=== PATIENT | female | born 1950 | race Caucasian/White ===

== ENCOUNTER 2020-02-15 11:31 | Observation (INO) | payer BC, MEDICARE ==
[~2020-02-15] VITALS: Ht 170.2 cm; Wt 76.7 kg
[~2020-02-15 11:31] MED LIST: Z.0.PRINIVIL10 MG PO; Z.0.ZOCOR20 MG PO
[2020-02-15 11:55] LABS: BASOPHILS % 0.9 % (0.0-1.0); EOSINOPHILS % 0.9 % (0.0-6.0); HEMATOCRIT 40.4 % (34.2-44.1); HEMOGLOBIN 13.4 g/dL (12.0-16.0); LYMPHOCYTES # (AUTO) 1.7 (1.0-3.2); LYMPHOCYTES % 37.9 % (18.0-39.1); MEAN CORPUSCULAR HEMOGLOBIN 29.3 pg (28-32); MEAN CORPUSCULAR HGB CONC 33.2 g/dL (31-35); MEAN CORPUSCULAR VOLUME 88.4 fL (81-99); MONOCYTES # (AUTO) 0.2 (0.2-0.8); MONOCYTES % 5.3 % (4.4-11.3); NEUTROPHILS # (AUTO) 2.5 (2.1-6.9); NEUTROPHILS % 54.8 % (38.7-80.0); PLATELET COUNT 236 x10e3/uL (140-360); RED BLOOD COUNT 4.57 x10e6/uL (3.6-5.1); RED CELL DISTRIBUTION WIDTH 13.4 % (11.7-14.4)
[2020-02-15 12:13] LABS: ALANINE AMINOTRANSFERASE 21 IU/L (0-55); ALBUMIN 4.3 g/dL (3.5-5.0); ALBUMIN/GLOBULIN RATIO 1.5 (0.8-2.0); ALKALINE PHOSPHATASE 73 IU/L (40-150); ANION GAP 15.2 mmol/L (8-16); BLOOD UREA NITROGEN 8 mg/dL (7-26); BUN/CREATININE RATIO 11 (6-25); CALCIUM 9.9 mg/dL (8.4-10.2); CARBON DIOXIDE 27 mmol/L (22-29); CHLORIDE 105 mmol/L (98-107); CREATINE KINASE 72 IU/L (29-168); CREATININE, SERUM 0.71 mg/dL (0.57-1.11); EST GLOMERULAR FILTRATION RATE > 60 ML/MIN (60-); GLUCOSE 100 mg/dL (74-118); POTASSIUM 4.2 mmol/L (3.5-5.1); SODIUM 143 mmol/L (136-145)
--- NOTE | 2020-02-15 12:24 | Diagnostic Imaging Report ---
X-ray chest frontal view History: Left-sided chest pain Comparison: 06/29/2010 Findings: Central airways: Unremarkable Cardiac silhouette: Unremarkable Mediastinal silhouettes: Unremarkable Pleura: No pleural effusion, pneumothorax or thickening Diaphragms: Unremarkable Lungs: No focal lung disease Skeletal structures: Chronic changes of degeneration Extrathoracic soft tissues: Unremarkable Impression: No acute cardiopulmonary disease Signed by: Markie Ga MD on 02/15/2020 12:20 PM
--- NOTE | 2020-02-15 12:46 | Emergency Department Note ---
History of Present Illnes History of Present Illness Chief Complaint: Chest Pain History of Present Illness This is a 69 year old female arrived to the ED with complaints of regimen chest pain that feels like pressure the past several days.. Chief Complaint Comment PATIENT IN FROM HOME WITH COMPLAINTS OF LEFT SIDED CHEST PAIN OFF AND ON SINCE YESTERDAY; STATES NOW SHE FEELS CHEST PRESSURE RATED 3/10. PATIENT ALERT AND ORIENTED, RESP EVEN AND NONLABORED, APPEARS ANXIOUS, AMBULATORY WITHOUT ASSISTANCE, O2 SATS 99% ON ROOM AIR Historian: Patient, Family Member Arrival Mode: Car Onset (how long ago): day(s) Radiation: Reports non-radiation Severity: mild Onset quality: sudden Duration (how long): day(s) Timing of current episode: constant Progression: resolved Chronicity: new Past Medical/Family History Physician Review I have reviewed the patient's past medical and family history. Any updates have been documented here. Past Medical History Recent Fever: No Clinical Suspicion of Infectio: No New/Unexplained Change in Ment: No Past Medical History: Hypertension, Hyperlipedemia Other Medical History: HYPERCHOLESTEREMIA, Past Surgical History: Appendectomy, Hysterectomy Other Surgery: OVARIAN CYST Review of Systems Review of Systems Constitutional: Reports no symptoms EENTM: Reports no symptoms Cardiovascular: Reports as per HPI, Reports chest pain Respiratory: Reports no symptoms Gastrointestinal: Reports no symptoms Genitourinary: Reports no symptoms Musculoskeletal: Reports no symptoms Integumentary: Reports no symptoms Neurological: Reports no symptoms Psychological: Reports no symptoms Endocrine: Reports no symptoms Hematological/Lymphatic: Reports no symptoms Physical Exam Related Data Allergies: Coded Allergies: No Known Allergies (Unverified , 02/20/11) Triage Vital Signs Vital Signs Date Time Temp Pulse Resp B/P (MAP) Pulse Ox O2 Delivery O2 Flow Rate FiO2 02/15/20 11:37 98.2 73 18 169/81 99 Room Air Vital signs reviewed: Yes Physical Exam CONSTITUTIONAL Constitutional: Present well-developed, Present well-nourished HENT HENT: Present normocephalic, Present atraumatic, Present oropharynx clear/moist, Present nose normal HENT L/R: Present left ext ear normal, Present right ext ear normal EYES Eyes: Reports PERRL, Reports conjunctivae normal NECK Neck: Present ROM normal PULMONARY Pulmonary: Present effort normal, Present breath sounds normal CARDIOVASCULAR Cardiovascular: Present regular rhythm, Present heart sounds normal, Present capillary refill normal, Present normal rate GASTROINTESTINAL Abdominal: Present soft, Present nontender, Present bowel sounds normal GENITOURINARY Genitourinary: Present exam deferred SKIN Skin: Present warm, Present dry MUSCULOSKELETAL Musculoskeletal: Present ROM normal NEUROLOGICAL Neurological: Present alert, Present oriented x 3, Present no gross motor or sensory deficits PSYCHOLOGICAL Psychological: Present mood/affect normal, Present judgement normal Results Laboratory Result Diagram: 02/15/20 1150 02/15/20 1150 Laboratory Laboratory Tests Test 02/15/20 11:50 White Blood Count 4.56 x10e3/uL (4.8-10.8) Red Blood Count 4.57 x10e6/uL (3.6-5.1) Hemoglobin 13.4 g/dL (12.0-16.0) Hematocrit 40.4 % (34.2-44.1) Mean Corpuscular Volume 88.4 fL (81-99) Mean Corpuscular Hemoglobin 29.3 pg (28-32) Mean Corpuscular Hemoglobin Concent 33.2 g/dL (31-35) Red Cell Distribution Width 13.4 % (11.7-14.4) Platelet Count 236 x10e3/uL (140-360) Neutrophils (%) (Auto) 54.8 % (38.7-80.0) Lymphocytes (%) (Auto) 37.9 % (18.0-39.1) Monocytes (%) (Auto) 5.3 % (4.4-11.3) Eosinophils (%) (Auto) 0.9 % (0.0-6.0) Basophils (%) (Auto) 0.9 % (0.0-1.0) Neutrophils # (Auto) 2.5 (2.1-6.9) Lymphocytes # (Auto) 1.7 (1.0-3.2) Monocytes # (Auto) 0.2 (0.2-0.8) Eosinophils # (Auto) 0.0 (0.0-0.4) Basophils # (Auto) 0.0 (0.0-0.1) Absolute Immature Granulocyte (auto 0.01 x10e3/uL (0-0.1) Sodium Level 143 mmol/L (136-145) Potassium Level 4.2 mmol/L (3.5-5.1) Chloride Level 105 mmol/L (98-107) Carbon Dioxide Level 27 mmol/L (22-29) Anion Gap 15.2 mmol/L (8-16) Blood Urea Nitrogen 8 mg/dL (7-26) Creatinine 0.71 mg/dL (0.57-1.11) Estimat Glomerular Filtration Rate > 60 ML/MIN (60-) BUN/Creatinine Ratio 11 (6-25) Glucose Level 100 mg/dL (74-118) Calcium Level 9.9 mg/dL (8.4-10.2) Total Bilirubin 0.5 mg/dL (0.2-1.2) Aspartate Amino Transf (AST/SGOT) 25 IU/L (5-34) Alanine Aminotransferase (ALT/SGPT) 21 IU/L (0-55) Alkaline Phosphatase 73 IU/L (40-150) Creatine Kinase 72 IU/L (29-168) Creatine Kinase MB 1.40 ng/mL (0-5.0) Troponin I 0.022 ng/mL (0-0.300) Total Protein 7.2 g/dL (6.5-8.1) Albumin 4.3 g/dL (3.5-5.0) Globulin 2.9 g/dL (2.3-3.5) Albumin/Globulin Ratio 1.5 (0.8-2.0) Lab results reviewed: Yes Imaging Imaging results reviewed: Yes Procedures 12 Lead ECG Interpretation ECG Interpretation : ECG: ECG 1 Prior ECG tracings: reviewed Rhythm: sinus rhythm QRS axis: normal ST segments normal: Yes T waves normal: Yes Clinical Impression: normal ECG Clinical Decision Tools HEART Score Another reason for symptoms: HEART score not applicable HEART Score: HEART Score Response (Comments) Value History Moderately suspicious 1 EKG Non specific repolarization 1 Age > or equal to 65 2 Risk factors 1 or 2 risk factors 1 Troponin 1-3x normal limit Total 5 Assessment & Plan Medical Decision Making MDM The patient's risk factors for ACS were reviewed as well as the EKG. The CXR assists in r/o Pneumonia, Pneumothorax, Esophageal Tears. The patient does not appear to have a Pulmonary Embolism based on the Wells Score and PERC rule and there is no apparent DVT. There are no signs of Pericarditis, Endocarditis, or Myocarditis based on risk factor analysis. There is no fever. There does not appear to be an Aortic Dissection either based on history, physical exam, and signs. with a high heart score her hospital admission for cardiac optimization Assessment & Plan Final Impression: (1) Chest pain Depart Disposition: HOME, SELF-CARE Last Vital Signs Date Time Temp Pulse Resp B/P (MAP) Pulse Ox O2 Delivery O2 Flow Rate FiO2 02/15/20 11:37 98.2 73 18 169/81 99 Room Air Home Meds Reported Medications Simvastatin (Zocor) 20 Mg Tablet, QD 02/20/11 Lisinopril (Prinivil) 10 Mg Tablet, QD 02/20/11 REJI CORTEZ, Feb 15, 2020 12:46
[2020-02-15] MEDS ORDERED: ASPIRIN 81 MG CHEW TAB PO ONE (14:30)
--- NOTE | 2020-02-15 15:26 | NUR ---
Patient is requesting a new biofuels product development manager for her care. Requesting to see Dr. Dickey- consult placed, Dr. Dickey informed.
--- NOTE | 2020-02-15 16:25 | NUR ---
Received patient from ER via wheelchair. AAOX4 to time, person, place, situation. Respirations even and unlabored. Denies chest pain. Tele #[phone]. Oriented patient to room. Instructed to use call light for assistance. Voiced understanding.
[2020-02-15] MEDS ORDERED: VITAMIN D3 COM1 EACH PO (16:32)
[2020-02-15] MEDS ORDERED: ASPIRIN81 MG PO (16:32)
[2020-02-15] MEDS ORDERED: vitamin d3 PO (16:33)
[2020-02-15 16:53] VITALS: BP 141/56
[2020-02-15 17:00] VITALS: BP 141/56
--- NOTE | 2020-02-15 19:12 | Consultation ---
DATE OF CONSULTATION: Cardiology Consultation REASON FOR CONSULTATION: Chest pain. HISTORY OF PRESENT ILLNESS: This is a 69-year-old woman with a history of hypertension, hyperlipidemia, and self-reported stress and anxiety, who presented to the emergency department with left flank pain. The patient states that her discomfort started below her left breast and radiated around to the upper back. Her symptoms occurred at rest, slightly worsened with supine positioning, not exacerbated by exertion. Her symptoms with [id number] intensity, described as a sharp pain, symptoms were mild, no other exacerbating or relieving factors. She states that she has had a heart catheterization in the past, which showed no blockages. She is otherwise asymptomatic from a cardiovascular standpoint. REVIEW OF SYSTEMS: A 12-point review of system was conducted, is negative except stated above in the HPI. PAST MEDICAL HISTORY: As stated above in the HPI. PAST SURGICAL HISTORY: None recent. PAST FAMILY HISTORY: Noncontributory to current illness. SOCIAL HISTORY: No illicit drug, alcohol, or tobacco use. ALLERGIES: NO KNOWN DRUG ALLERGIES. MEDICATIONS: See medication reconciliation form. PHYSICAL EXAMINATION: VITAL SIGNS: Temperature is 98.3, heart rate 62, respirations 18, blood pressure is 141/56, oxygen saturation is 100% on room air. GENERAL: A well-appearing, well built, no apparent distress. Alert and oriented x3. HEAD: Normocephalic and atraumatic. Eyes, the extraocular muscles are intact. Conjunctivae are clear. NECK: No JVD. No bruits. CARDIOVASCULAR: Regular rate and rhythm. LUNGS: Clear to auscultation. ABDOMEN: Soft, nontender, nondistended. EXTREMITIES: No clubbing, cyanosis, or edema. VASCULAR: 2+ pulses. SKIN: Warm, dry, intact. NEUROLOGIC: No focal deficits noted. Cranial nerves grossly intact. PSYCHIATRIC: Normal mood and affect. LABORATORY DATA: Reviewed. Troponin negative x1. A 12-lead electrocardiogram showed normal sinus rhythm. IMPRESSION: 1. Precordial pain. 2. Hypertension. 3. Hyperlipidemia. RECOMMENDATIONS: Obtain 1 additional troponin value. If this is within normal limits, the patient may be discharged from a cardiovascular standpoint with followup on February 17 for stress test and echocardiography. DO BREANA Mcfadden/MODL /[id number]
--- NOTE | 2020-02-15 19:19 | NUR ---
Troponin level 0.019. Cleared to discharge from cardiac standpoint. Patient states "I want to go home." Denies chest pain.Call light within reach. at bedside.Paged to notify of situation. Report given to oncoming nurse of patient's status.
[2020-02-15 20:00] VITALS: BP 122/63
[2020-02-15] MEDS ORDERED: SIMVASTATIN 20 MG TAB PO SCH (21:00)
[2020-02-16] MEDS ORDERED: LISINOPRIL 10 MG TAB PO SCH (09:00)
[2020-02-16] MEDS ORDERED: ASPIRIN 81 MG CHEW TAB PO SCH (09:00)
== END 2020-02-15 20:26 | disposition home or self-care (01) ==
LOC: ER 11:41 → ERHOLD 14:16 → MED/SURG 16:24
DX: R07.9 Chest pain, unspecified (principal); I10 Essential (primary) hypertension; E78.5 Hyperlipidemia, unspecified; E78.00 Pure hypercholesterolemia, unspecified; R07.89 Other chest pain; Z11.59 Encounter for screening for other viral diseases
CPT/HCPCS: 36415; 71045; 80053; 82550; 82553; 84484; 85025; 93005; 99284; G0378; U0002

== ENCOUNTER 2020-02-26 12:29 | Emergency (ER) | payer BC, MEDICARE ==
[~2020-02-26] VITALS: Ht 167.6 cm; Wt 77.2 kg
[~2020-02-26 12:29] MED LIST changes: +ASPIRIN81 MG PO; +VITAMIN D3 COM1 EACH PO; +vitamin d3 PO
[2020-02-26] MEDS ORDERED: CEPHALEXIN 500 MG CAP PO STA (12:39)
[2020-02-26] MEDS ORDERED: LIDOCAINE HCL 2% LOCAL 20 ML VIAL INJ STA (12:39)
[2020-02-26] MEDS ORDERED: ACETAMINOPHEN 325 MG TAB PO ONE (12:45)
[2020-02-26] MEDS ORDERED: TRIMETHOPRIM/SULFAMETHOXAZOLE 160-800 MG TAB ONE (12:53)
[2020-02-26] MEDS ORDERED: BACITRACIN ZINC 0.9GM TP ONE (12:53)
[2020-02-26] MEDS ORDERED: TRIMETHOPRIM/SULFAMETHOXAZOLE 160-800 MG TAB PO ONE (13:00)
--- NOTE | 2020-02-26 13:29 | Emergency Department Note ---
History of Present Illnes History of Present Illness Chief Complaint: Laceration History of Present Illness This is a 69 year old female accidentally fell at ground level, lacera tion right eye brow about 2.5 cm, abrasion right knee, painful, size of a dollar coin. Pt came to Dr Renard Topete PCP and was told to come to ER for evaluation. Arrival Mode: Car International Manager Required: No Onset (how long ago): hour(s) Radiation: Reports non-radiation Severity: moderate Onset quality: sudden Duration (how long): hour(s) Progression: unchanged Chronicity: new Relieving factors: none Exacerbating factors: none Treatments prior to arrival: NSAID Past Medical/Family History Physician Review I have reviewed the patient's past medical and family history. Any updates have been documented here. 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, ) Review of Systems Review of Systems Constitutional: Reports no symptoms EENTM: Reports no symptoms Cardiovascular: Reports no symptoms Respiratory: Reports no symptoms Gastrointestinal: Reports no symptoms Genitourinary: Reports no symptoms Musculoskeletal: Reports as per HPI Integumentary: Reports rash Neurological: Reports no symptoms Psychological: Reports no symptoms Endocrine: Reports no symptoms Hematological/Lymphatic: Reports no symptoms Physical Exam Related Data Allergies: Coded Allergies: No Known Allergies (Unverified , 02/20/11) Vital signs reviewed: Yes Physical Exam CONSTITUTIONAL Constitutional: Present well-developed, Present well-nourished HENT HENT: Present normocephalic, Present atraumatic, Present oropharynx clear/moist, Present nose normal HENT L/R: Present left ext ear normal, Present right ext ear normal EYES Eyes: Reports PERRL, Reports conjunctivae normal NECK Neck: Present ROM normal PULMONARY Pulmonary: Present effort normal, Present breath sounds normal CARDIOVASCULAR Cardiovascular: Present regular rhythm, Present heart sounds normal, Present capillary refill normal, Present normal rate GASTROINTESTINAL Abdominal: Present soft, Present nontender, Present bowel sounds normal GENITOURINARY Genitourinary: Present exam deferred SKIN Skin: Present warm, Present dry, Present rash (abrasion right knee), Present bruising (laceraion right eyebrow with ecchymosis) MUSCULOSKELETAL Musculoskeletal: Present ROM normal NEUROLOGICAL Neurological: Present alert, Present oriented x 3, Present no gross motor or sensory deficits PSYCHOLOGICAL Psychological: Present mood/affect normal, Present judgement normal Procedures Laceration Laceration: Laceration 1 Site: face Side: right Size (cm): 2.5 Description: linear Depth: simple, single layer Local anesthesia: lidocaine 1%, lidocaine 2%, with epi Amount of anesthesia (mL): 3 Pre-repair: wound exposed Skin layer closed with: nylon Size (cm): 5-0 Number of sutures: 5 Technique: simple, interrupted Additional comments bacitracin applied, covered with sterile strips Assessment & Plan Medical Decision Making MDM laceration abrasion Reassessment Reassessment time: 13:25 Reassessment walks out of ER in [facility] Assessment & Plan Final Impression: (1) Acute pain due to trauma (2) Laceration of right eyebrow (3) Abrasion of right knee Depart Disposition: HOME, SELF-[facility] Meds Reported Medications [vitamin d3] No Conflict Check, 2000 UNITS PO DAILY 02/15/20 Aspirin (ASPIRIN) 81 Mg Tab.chew, 81 MG PO DAILY 02/15/20 Simvastatin (Zocor) 20 Mg Tablet, 20 MG PO QD 02/20/11 Lisinopril (Prinivil) 10 Mg Tablet, 10 MG PO QD 02/20/11 Physician Attestation Provider Attestation f/u with PCP 5-7 days for sutures removal KOSTAS MCRAE MD Feb 26, 2020 12:43
--- OUTSIDE RECORDS SUMMARY | 2020-02-28 19:03 | XMS REPORT | Continuity of Care Document ---
Author Author 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 Allergies, Adverse Reactions, Alerts This patient has no known allergies or adverse reactions. Medications This patient has no known medications. Procedures This patient has no known procedures. Results Test Description Test Time Test Comments Results Result Comments Source CHEST SINGLE (PORTABLE) 2020-02-15 12:18:00 [facility] 1950 Sex: F [facility] [address] [place], [place] [address] Patient Name: LINDA MURO MR #: [id number] : 1950 Age/Sex: 69/F Req #: [id number] [facility] Physician: Ordered by: REJI CORTEZ DO Report #: [id number] Location: ER Room/Bed: Procedure: [id number] DX/CHEST SINGLE (PORTABLE) Exam Date: 02/15/20 Exam Time: 1154 REPORT STATUS: Signed X-ray chest frontal view History: Left-sided chest pain Comparison: 06/29/2010 Findings: Central airways: Unremarkable Cardiac silhouette: Unremarkable Mediastinal silhouettes: Unremarkable Pleura: No pleural effusion, pneumothorax or thickening Diaphragms: Unremarkable Lungs: No focal lung disease Skeletal structures: Chronic changes of degeneration Extrathoracic soft tissues: Unremarkable Impression: No acute cardiopulmonary disease Signed by: Mateo Montes MD on 02/15/2020 12:20 PM Dictated By: MATEO MONTES MD 1220 Transcribed By: NGUYEN on 02/15/20 1220 COPY TO: REJI CORTEZ DO SCR MAMM BILATERAL ELIDA CAD DIGITAL 2019-04-20 10:55:22 - SCR MAMM BILATERAL ELIDA CAD DIGITALBILATERAL DIGITAL SCREENING MAMMOGRAM 3D/2D WITH CAD: 03/26/2019CLINICAL: Asymptomatic. Digital breast tomosynthesis was performed in addition to routine CC and MLO views. Current mammographic images were evaluated by either a 1calendar M-Vu or a [employer] ImageChecker CAD (computer aided detection system). Comparison is made to exams dated 06/04/2011 mammogram - [facility]- and 08/24/2007 mammogram - [facility]. There are scattered fibroglandular tissues in both breasts. No new suspicious mass, architectural distortion, malignant type calcification, or lymph node abnormality detected. Breast architecture is stable compared to prior exams.IMPRESSION: NEGATIVEThere is no mammographic evidence of malignancy. Resume annual screening mammography in one year. Lupe Freeman M.D. ar/:04/20/2019 10:55:22 Vertical Lathe Operator: Yvette Thomson , [facility]-FWletter sent: BIRADS 1-2 Normal Mammogram BI-RADS: 1 Negative
== END 2020-02-26 13:26 | disposition home or self-care (01) ==
LOC: FSED 13:02
DX: S01.111A Laceration without foreign body of right eyelid and periocular area, initial encounter (principal); S80.211A Abrasion, right knee, initial encounter; W01.0XXA Fall on same level from slipping, tripping and stumbling without subsequent striking against object, initial encounter; Y93.01 Activity, walking, marching and hiking; Y92.008 Other place in unspecified non-institutional (private) residence as the place of occurrence of the external cause; I10 Essential (primary) hypertension; E78.5 Hyperlipidemia, unspecified
CPT/HCPCS: 12011; 99284; J2001

== ENCOUNTER → 2021-02-10 | Outpatient (CLI) | payer MEDICARE ==
[~2021-02-10] MED LIST changes: +IOPAMIDOL 370 MG/ML 200 ML INFUS..BTL INJ ONE; +METOPROLOL TARTRATE INJ 1 MG/ML VIAL ONE; +NITROGLYCERIN 0.4 MG SUBL ONE; +SODIUM CHLORIDE 0.9% 100 ML ONE
[2021-02-10 09:28] LABS: CREATININE, SERUM 0.64 mg/dL (0.57-1.11)
== END ==
LOC: CT 08:33
PROVIDERS: ATTEND Internal Medicine Cardiovascular Disease
DX: R07.9 Chest pain, unspecified (principal)
CPT/HCPCS: 36415; 75574; 82565; 84520; J7050; Q9967

== ENCOUNTER → 2021-10-09 | Outpatient (CLI) | payer MEDICARE ==
[~2021-10-09] MED LIST changes: -IOPAMIDOL 370 MG/ML 200 ML INFUS..BTL INJ ONE; -METOPROLOL TARTRATE INJ 1 MG/ML VIAL ONE; -NITROGLYCERIN 0.4 MG SUBL ONE; -SODIUM CHLORIDE 0.9% 100 ML ONE
== END ==
LOC: US 10:50
PROVIDERS: ATTEND Surgery
DX: R10.11 Right upper quadrant pain (principal)
CPT/HCPCS: 76705